=== PATIENT | male | born 1940 | race Caucasian/White ===

== ENCOUNTER 2017-05-24 06:32 | Observation (INO) | payer MEDICARE, BC ==
[2017-05-24] VITALS (45 sets, daily range): BP systolic 91–131; BP diastolic 52–64; PULSE 42–60; RESP 12–33; Ht 175.3 cm; Wt 72.5 kg
[~2017-05-24] VITALS: Ht 175.3 cm; Wt 72.5 kg
[~2017-05-24 06:32] MED LIST: AMPH20TA2 PO; ATOR20TA38 PO; CARV3.1260 PO; CLOP75TA4 PO; FINA5TAB4 PO; FURO20TA3 PO; LOSA25TA5 PO; OXYC30TA PO; TERA5CAP3 PO
[2017-05-24] MEDS ORDERED: GABA300C16 PO (07:42)
[2017-05-24] MEDS ORDERED: TRAM-40 PO (07:43)
[2017-05-24] MEDS ORDERED: TERA5CAP3 PO (07:43)
[2017-05-24 07:45] LABS: ADD SCAN DIFF NO
[2017-05-24 07:47] LABS: BASOPHILS % 0.5 % (0.0-2.0); EOSINOPHILS # 0.2 10^3/ul (0.0-0.5); EOSINOPHILS % 2.9 % (0.0-7.0); HEMATOCRIT 35.6 % (42.0-52.0); HEMOGLOBIN 11.9 g/dl (14.0-18.0); LYMPHOCYTES # 1.4 10^3/ul (0.8-2.9); MEAN CORPUSCULAR HEMOGLOBIN 31.4 pg (29.0-33.0); MEAN CORPUSCULAR HGB CONC 33.4 g/dl (32.0-37.0); MEAN CORPUSCULAR VOLUME 93.9 fl (82.0-101.0); MEAN PLATELET VOLUME 9.9 fl (7.4-10.4); MONOCYTES % 13.3 % (0.0-11.0); NEUTROPHIL # 4.9 10^3/ul (1.6-7.5); PLATELET COUNT 196 10^3/UL (140-415); RED BLOOD COUNT 3.79 10^6/ul (4.70-6.10); WHITE BLOOD COUNT 7.6 10^3/ul (4.8-10.8)
[2017-05-24 08:09] LABS: INR 1.03; PROTIME 13.5 Sec (12.2-14.2); PT RATIO 1.1
[2017-05-24 08:10] LABS: PARTIAL THROMBOPLASTIN TIME 27.2 Sec (25.0-35.0)
[2017-05-24 08:12] LABS: CALCIUM 9.3 mg/dl (8.4-10.2); CHOL/HDL RATIO 2.1 RATIO; CREATININE 1.01 mg/dl (0.61-1.24); POTASSIUM 4.6 mmol/L (3.5-5.1)
--- NOTE | 2017-05-24 08:12 | RADRPT ---
PROCEDURE: XR Chest 1 View. CLINICAL INDICATION: Abnormal breath sounds, preop. TECHNIQUE: AP view of the chest was obtained. COMPARISON: April 16, 2016 FINDINGS: The heart size is within normal limits. Calcified atherosclerosis is noted in the aorta. Subsegment al atelectasis is seen at the lung bases. No consolidations are identified. No pneumothorax is seen . The osseous structures are intact. Degenerative changes are seen in the shoulders. IMPRESSION: Calcified atherosclerosis in the aorta. Atelectasis at the lung bases. RPTAT: AA .Dain Dick MD, MD Date Time Electronically viewed and signed by .Dain Dick MD, MD on 05/24/2017 08:12 .P/
[2017-05-24] MEDS ORDERED: FENTAnyl 50 MCG/ML VIAL ONE (08:20)
[2017-05-24] MEDS ORDERED: LIDOCAINE 1% (MDV) 20 ML INJ ONE (08:20)
[2017-05-24] MEDS ORDERED: HEPARIN 1000 UNITS/ML 10 ML INJ ONE (08:20)
[2017-05-24] MEDS ORDERED: VERAPAMIL 5 MG INJ ONE (08:20)
[2017-05-24] MEDS ORDERED: NITROGLYCERIN (IC) 100 MCG/ML INJ ONE (08:20)
[2017-05-24] MEDS ORDERED: MIDAZOLAM 1 MG/ML 2 ML INJ ONE (08:20)
[2017-05-24] MEDS ORDERED: IODIXANOL LOCM 100 ML BTL ONE (08:20)
[2017-05-24] MEDS ORDERED: SOD CHLORIDE 0.9% 500 ML ONE (10:15)
[2017-05-24] MEDS ORDERED: IOHEXOL 350MG/ML 50 ML BTL ONE (10:16)
--- NOTE | 2017-05-24 10:34 | RADRPT ---
Vent Rate: 52 bpm RR Interval: 0 msec VT Interval: 200 msec QRS Duration: 96 msec QT Interval: 470 msec QTC Interval: 437 msec P-R-T [place]: 57 - 14 - 68 degrees Sinus bradycardia Otherwise normal ECG Electronically Signed By: Barry Greenfield [id number]
[2017-05-24] MEDS ORDERED: ASPIRIN 325 MG TAB ONE (10:48)
[2017-05-24] MEDS ORDERED: CLOPIDOGREL 300 MG TAB ONE (10:48)
[2017-05-24] MEDS ORDERED: OXYCODONE/ACETAMINOPHEN (5/325) TAB PO PRN (11:00)
[2017-05-24] MEDS ORDERED: ACETAMINOPHEN 325 MG TAB PO PRN (11:00)
[2017-05-24] MEDS ORDERED: ONDANSETRON 4 MG INJ IV PRN (11:00)
[2017-05-24] MEDS ORDERED: ZOLPIDEM 5 MG TAB PO PRN (11:00)
[2017-05-24] MEDS ORDERED: AL HYDROX/MG HYDROX/SIMETH 30 ML CUP PO PRN (11:00)
[2017-05-24] MEDS ORDERED: morphine 2 MG INJ IV PRN (11:00)
--- NOTE | 2017-05-24 11:08 | OPR ---
Date/Time of Note Date/Time of Note DATE: 05/24/17 TIME: 11:02 Operative Report Procedure Date: May 24, 2017 Preoperative Diagnosis chest pain/abnormal stress test Postoperative Diagnosis obstructive cad s/p PTCA to RCA/acute marginal branch Operation Performed Left heart catheterization and PTCA Surgeon: PATTY MERRITT Anesthesia: other (moderate concious sedation) Estimated Blood Loss: 0 - 10 ml's Specimens none Complications: None Pt Condition Post Procedure: stable Disposition: PACU Indications chest pain/ abnormal stress test Operative\Procedure Findings widely patent LCX stent 30% prox lcx stenosis, 50% eccentric OM stenosis small RCA with difffuse distal disease of PDA/PLB up to 90-95% 90% acute marginal stenosis s/p PTCA along LVEDP 16 Procedure Description Used JL 3.5 to cannulate LMN, FR4 to canbnulate RCA and cross aortic valve and measure LVEDP, and used FR4 guide 6 kittitian for intervention on rca PATTY MERRITT May 24, 2017 11:08
[2017-05-24] MEDS: SOD CHLORIDE 0.9% 1,000 ML IV SCH ×2 (11:54→21:10)
[2017-05-25] VITALS (8 sets, daily range): BP systolic 109–140; BP diastolic 55–65; PULSE 51–62; RESP 18
[2017-05-25] MEDS ORDERED: ACETAMINOPHEN 325 MG TAB PO PRN
[2017-05-25] MEDS ORDERED: traMADol 50 MG TAB PO PRN
[2017-05-25] MEDS ORDERED: FUROSEMIDE 20 MG TAB PO SCH (06:00)
[2017-05-25 06:09] LABS: ADD SCAN DIFF NO
[2017-05-25 06:13] LABS: BASOPHILS % 0.6 % (0.0-2.0); EOSINOPHILS # 0.2 10^3/ul (0.0-0.5); HEMATOCRIT 35.6 % (42.0-52.0); HEMOGLOBIN 11.9 g/dl (14.0-18.0); LYMPHOCYTES # 1.3 10^3/ul (0.8-2.9); LYMPHOCYTES % 18.5 % (15.0-51.0); MEAN CORPUSCULAR HEMOGLOBIN 31.6 pg (29.0-33.0); MEAN CORPUSCULAR HGB CONC 33.4 g/dl (32.0-37.0); MEAN CORPUSCULAR VOLUME 94.7 fl (82.0-101.0); MEAN PLATELET VOLUME 9.9 fl (7.4-10.4); MONOCYTE # 0.7 10^3/ul (0.3-0.9); MONOCYTES % 10.6 % (0.0-11.0); NEUTROPHIL # 4.7 10^3/ul (1.6-7.5); NEUTROPHILS % 67.2 % (39.0-77.0); PLATELET COUNT 199 10^3/UL (140-415); RED BLOOD COUNT 3.76 10^6/ul (4.70-6.10); RED CELL DISTRIBUTION WIDTH 13.8 % (11.5-14.5)
[2017-05-25 06:46] LABS: CREATININE 0.84 mg/dl (0.61-1.24); POTASSIUM 4.3 mmol/L (3.5-5.1)
[2017-05-25] MEDS: GABAPENTIN 300 MG CAP PO SCH ×2 (08:13→12:42)
[2017-05-25] MEDS ORDERED: ASPIRIN (EC) 325 MG TAB PO SCH (09:00)
[2017-05-25] MEDS ORDERED: LOSARTAN 25 MG TAB PO SCH (09:00)
[2017-05-25] MEDS ORDERED: FINASTERIDE 5 MG TAB PO SCH (09:00)
[2017-05-25] MEDS ORDERED: CLOPIDOGREL 75 MG TAB PO SCH (09:00)
--- NOTE | 2017-05-25 10:36 | RADRPT ---
Vent Rate: 43 bpm RR Interval: 0 msec SC Interval: 206 msec QRS Duration: 94 msec QT Interval: 518 msec QTC Interval: 437 msec P-R-T [place]: 38 - -1 - 63 degrees Marked sinus bradycardia Abnormal ECG Electronically Signed By: Barry Greenfield [id number]
--- NOTE | 2017-05-25 10:39 | RADRPT ---
Vent Rate: 54 bpm RR Interval: 0 msec SD Interval: 200 msec QRS Duration: 98 msec QT Interval: 438 msec QTC Interval: 415 msec P-R-T [place]: 56 - 2 - 56 degrees Sinus bradycardia Otherwise normal ECG Electronically Signed By: Barry Greenfield [id number]
--- NOTE | 2017-05-25 13:09 | DS ---
Date/Time of Note Date/Time of Note DATE: 05/25/17 TIME: 13:09 Discharge Summary Admission/Discharge Info Admit Date/Time May 24, 2017 at 19:55 Discharge Date/Time Home Meds Reported Medications Tramadol Hcl* (Ultram*) 50 Mg Tablet, 50 MG PO Q6H Y for PAIN, TAB 05/24/17 Terazosin Hcl* (Terazosin Hcl*) 5 Mg Capsule, 5 MG PO HS, CAP 05/24/17 Gabapentin* (Gabapentin*) 300 Mg Capsule, 300 MG PO TID, #90 CAP 05/24/17 Amphet Uem-Uwrbow-V-Amphet (Adderall) 20 Mg Tablet, 20 MG PO QID, TAB 04/15/16 Atorvastatin Calcium* (Atorvastatin Calcium*) 20 Mg Tablet, 20 MG PO HS, TAB 06/17/15 Carvedilol* (Carvedilol*) 3.125 Mg Tablet, 3.125 MG PO BID, TAB 06/17/15 Losartan Potassium* (Losartan Potassium*) 25 Mg Tablet, 25 MG PO DAILY, TAB 06/17/15 Furosemide* (Furosemide*) 20 Mg Tablet, 20 MG PO DAILY, TAB 06/17/15 Clopidogrel Bisulfate* (Clopidogrel Bisulfate*) 75 Mg Tablet, 75 MG PO DAILY, TAB 06/17/15 Finasteride* (Finasteride*) 5 Mg Tablet, 5 MG PO DAILY, TAB 06/06/14 Discontinued Reported Medications Oxycodone Hcl* (IR) (Oxycodone Hcl*) 30 Mg Tablet, 30 MG PO Q6 Y for PAIN, TAB 04/15/16 Terazosin Hcl* (Terazosin Hcl*) 5 Mg Capsule, 5 MG PO HS, CAP 06/17/15 Finasteride* (Finasteride*) 5 Mg Tablet, 5 MG PO DAILY, TAB 06/17/15 Terazosin Hcl* (Terazosin Hcl*) 5 Mg Capsule, 5 MG PO HS, CAP 06/06/14 Primary Care Provider Trey Del Real MD Pending Labs Laboratory Tests Test 05/25/17 05:41 White Blood Count 7.010^3/ul (4.8-10.8) Red Blood Count 3.7610^6/ul (4.70-6.10) Hemoglobin 11.9g/dl (14.0-18.0) Hematocrit 35.6% (42.0-52.0) Mean Corpuscular Volume 94.7fl (82.0-101.0) Mean Corpuscular Hemoglobin 31.6pg (29.0-33.0) Mean Corpuscular Hemoglobin Concent 33.4g/dl (32.0-37.0) Red Cell Distribution Width 13.8% (11.5-14.5) Platelet Count 46198^3/UL (140-415) Mean Platelet Volume 9.9fl (7.4-10.4) Neutrophils % 67.2% (39.0-77.0) Lymphocytes % 18.5% (15.0-51.0) Monocytes % 10.6% (0.0-11.0) Eosinophils % 3.0% (0.0-7.0) Basophils % 0.6% (0.0-2.0) Nucleated Red Blood Cells % 0.0/100WBC (0.0-0.0) Neutrophils # 4.710^3/ul (1.6-7.5) Lymphocytes # 1.310^3/ul (0.8-2.9) Monocytes # 0.710^3/ul (0.3-0.9) Eosinophils # 0.210^3/ul (0.0-0.5) Basophils # 0.010^3/ul (0.0-0.1) Nucleated Red Blood Cells # 0.010^3/ul (0.0-0.0) Sodium Level 140mmol/L (135-144) Potassium Level 4.3mmol/L (3.5-5.1) Chloride Level 108mmol/L (97-110) Carbon Dioxide Level 24mmol/L (21-31) Anion Gap 12 (8-16) Blood Urea Nitrogen 21mg/dl (7-20) Creatinine 0.84mg/dl (0.61-1.24) Glucose Level 95mg/dl (70-220) Calcium Level 9.0mg/dl (8.4-10.2) HANSEL MENDEZ May 25, 2017 13:09
--- NOTE | 2017-05-25 14:01 | PDOCDIS ---
Discharge Instructions CONDITION Patient Condition: Stable HOME CARE INSTRUCTIONS: Diet Instructions: Low Fat /Cholesterol ACTIVITY: Activity Restrictions: Slowly Increase Activity Rest between Activity Avoid heavy lifting Do not operate Machinery Do not operate Power Tool Avoid Heavy Housework Bathing Restrictions: Sponge Bath FOLLOW UP/APPOINTMENTS Follow-up Plan FU with Primary MD X 1 WEEK fu with house director - Dr Bergeron x 1-2 weeks Call 911 or got to the nearest hospital if symptoms. Plan of care DW Dr Harrison/staff. HANSEL MENDEZ May 25, 2017 14:01
--- NOTE | 2017-05-25 14:03 | CONS ---
Date/Time of Note Date/Time of Note DATE: 05/25/17 TIME: 13:57 Assessment/Plan Assessment/Plan Chief Complaint/Hosp Course IMP: 1.POD#1 s/p PTCA to RCA/acute marginal 2. cardiomyopathy 3.HL 4.generalized weakness 5.hypothyroidism Recc: -Tele -serial ecg's -Continue asa/plavix and make sure has scripts -Continue coreg/losartan -Continue statin -outpatient f/u 2-3 weeks Problems: Consultation Date/Type/Reason Admit Date/Time May 24, 2017 at 19:55 Initial Consult Date 05/24/2017 Type of Consultation: Cardiology Reason for Consultation s/p PTCA Referring Provider: JOAQUIN BOO MD Exam/Review of Systems Vital Signs Vitals Vital Signs Date Time Temp Pulse Resp B/P Pulse Ox O2 Delivery O2 Flow Rate FiO2 05/25/17 12:29 62 05/25/17 11:23 98.0 18 120/59 96 05/24/17 13:50 Room Air Intake and Output 05/24/17 05/24/17 05/25/17 15:00 23:00 07:00 Intake Total 360 ml 855 ml 1075 ml Balance 360 ml 855 ml 1075 ml Exam Review of Systems: CONSTITUTIONAL: No fevers, chills. PULMONARY: No sob CARDIOVASCULAR: No chest pain/palpitations GASTROINTESTINAL: No nausea/vomiting. GENITOURINARY: No hematuria/dysuria. MUSCULOSKELETAL: No myagias/arthalgias. PSYCHIATRIC: The patient denies depression. NEUROLOGIC: No weakness Constitutional: alert, oriented Psych: no complaints Head: normocephalic ENMT: mucosa pink and moist Neck: jvd (8-9 cm water), supple Respiratory: diminished breath sounds (at bases/B) Cardiovascular: regular rate and rhythm Gastrointestinal: non-tender, soft Musculoskeletal: muscle tone (normal) Extremities: edema (none) Neurological: other (No focal deficits) Results Result Diagram: 05/25/17 0541 05/25/17 0541 Results 24 hrs Laboratory Tests Test 05/25/17 05:41 White Blood Count 7.0 Red Blood Count 3.76 L Hemoglobin 11.9 L Hematocrit 35.6 L Mean Corpuscular Volume 94.7 Mean Corpuscular Hemoglobin 31.6 Mean Corpuscular Hemoglobin Concent 33.4 Red Cell Distribution Width 13.8 Platelet Count 199 Mean Platelet Volume 9.9 Neutrophils % 67.2 Lymphocytes % 18.5 Monocytes % 10.6 Eosinophils % 3.0 Basophils % 0.6 Nucleated Red Blood Cells % 0.0 Neutrophils # 4.7 Lymphocytes # 1.3 Monocytes # 0.7 Eosinophils # 0.2 Basophils # 0.0 Nucleated Red Blood Cells # 0.0 Sodium Level 140 Potassium Level 4.3 Chloride Level 108 Carbon Dioxide Level 24 Anion Gap 12 Blood Urea Nitrogen 21 H Creatinine 0.84 Glucose Level 95 Calcium Level 9.0 Medications Medications Current Medications Aspirin (Ecotrin) 325 mg DAILY PO Last administered on 05/25/17 08:12; Admin Dose 325 MG; Start 05/25/17 at 09:00 Clopidogrel Bisulfate (plaVIX) 75 mg DAILY PO Last administered on 05/25/17 08 :12; Admin Dose 75 MG; Start 05/25/17 at 09:00 Acetaminophen (Tylenol Tab) 650 mg Q4H PRN PO NON-CARDIAC PAIN LEVEL 1-3 Last administered on 05/24/17 22:57; Admin Dose 650 MG; Start 05/24/17 at 11:00 Al Hydrox/Mg Hydrox/Simethicone (Mag-Al Plus) 30 ml Q4H PRN PO GASTROINTESTINAL UPSET; Start 05/24/17 at 11:00 Atorvastatin Calcium (Lipitor) 20 mg HS PO ; Start 05/25/17 at 21:00 Carvedilol (Coreg) 3.125 mg BID PO Last administered on 05/25/17 08:31; Admin Dose 3.125 MG; Start 05/25/17 at 09:00 Finasteride (Proscar) 5 mg DAILY PO Last administered on 05/25/17 08:13; Admin Dose 5 MG; Start 05/25/17 at 09:00 Furosemide (Lasix) 20 mg DAILY@06 PO Last administered on 05/25/17 05:49; Admin Dose 20 MG; Start 05/25/17 at 06:00 Gabapentin (Neurontin) 300 mg TID PO Last administered on 05/25/17 12:42; Admin Dose 300 MG; Start 05/25/17 at 09:00 Losartan Potassium (Cozaar) 25 mg DAILY PO Last administered on 05/25/17 08:13 ; Admin Dose 25 MG; Start 05/25/17 at 09:00 Terazosin HCl (Hytrin) 5 mg HS PO ; Start 05/25/17 at 21:00 Tramadol HCl (Ultram) 50 mg Q6H PRN PO PAIN; Start 05/25/17 at 00:00 Acetaminophen (Tylenol Tab) 650 mg Q4H PRN PO PAIN AND OR ELEVATED TEMP; Start 05/25/17 at 00:00 PATTY MERRITT May 25, 2017 14:03
[2017-05-25] MEDS ORDERED: ASPI325T32 PO (14:04)
[2017-05-25] MEDS ORDERED: TERAZOSIN 5 MG CAP PO SCH (21:00)
[2017-05-25] MEDS ORDERED: ATORVASTATIN 20 MG TAB PO SCH (21:00)
== END 2017-05-25 16:39 | disposition home or self-care (01) ==
LOC: SDS 06:32 → TEL 19:55 → SDS 19:55 → UNDOFXSDCACCOM 19:55 → UNDOFXSDCSVC 19:55 → TEL 19:55
PROVIDERS: ADMIT Internal Medicine; ATTEND Internal Medicine
DX: I25.10 Atherosclerotic heart disease of native coronary artery without angina pectoris (principal); R94.39 Abnormal result of other cardiovascular function study; I42.9 Cardiomyopathy, unspecified; E03.9 Hypothyroidism, unspecified
CPT/HCPCS: 71010; 80048; 80061; 85025; 85610; 85730; 92920; 93005; 93458; C1725; C1769; C1887; G0378; J1644; J2250; J3010; J7040; Q9967